=== PATIENT | male | born 1970 | race Caucasian/White ===

== ENCOUNTER 2021-05-21 13:59 | Emergency (ER) | payer BC ==
[2021-05-21] MEDS ORDERED: Sodium Chloride 0.9% 10 ML Syringe FLUSH PRN (14:11)
--- NOTE | 2021-05-21 14:11 | EDM.PDOC ---
ED HPI GENERAL MEDICAL PROBLEM - General Stated Complaint: DOESN'T FEEL WELL Time Seen by Provider: 05/21/21 14:10 Source of Information: Reports: Patient History Limitations: Reports: No Limitations - History of Present Illness INITIAL COMMENTS - FREE TEXT/NARRATIVE: Patient comes emergency department today from home with concerns of not feeling well. This patient yesterday was asymptomatic. 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 He had a very brief episode of diaphoresis. Otherwise he has no other symptoms. During the episode of the diaphoresis he did not have any chest pain shortness of breath or difficulty breathing. No weakness dizziness lightheadedness. He has felt fatigued all day but he typically would not feel as such with [place]. He has had no fever no chills. No abdominal pain no nausea or vomiting. No cough or congestion. No hematuria dysuria urinary frequency. No black or tarry stools. No rash sores or lesions. He is vaccinated for Covid. He has not been around anyone ill. He still feels fatigue but the diaphoresis has resolved. He has a history of high blood pressure. - Related Data Allergies Allergy/AdvReac Type Severity Reaction Status Date / Time No Known Allergies Allergy Verified 05/21/21 14:34 Home Meds: Home Meds Hydrochlorothiazide 25 mg PO DAILY 08/30/16 [History] Lisinopril 10 mg PO DAILY 08/30/16 [History] Sertraline [Zoloft] 100 mg PO DAILY 08/30/16 [History] amLODIPine [Norvasc] 10 mg PO DAILY 08/30/16 [History] Past Medical History HEENT History: Reports: None Cardiovascular History: Reports: High Cholesterol, Hypertension, Other (See Below) Other Cardiovascular History: low hdl Respiratory History: Reports: None Gastrointestinal History: Reports: Other (See Below) Other Gastrointestinal History: fm hx colon ca Psychiatric History: Reports: Anxiety, Depression Endocrine/Metabolic History: Reports: Obesity/BMI 30+ - Past Surgical History HEENT Surgical History: Reports: Tonsillectomy ED ROS GENERAL - Review of Systems Review Of Systems: Comprehensive ROS is negative, except as noted in HPI. ED EXAM, GENERAL - Physical Exam Exam: See Below Exam Limited By: No Limitations General Appearance: Alert, WD/WN, No Apparent Distress Eye Exam: Bilateral Eye: EOMI Ears: Normal External Exam Nose: Normal Inspection Throat/Mouth: Normal Inspection, Normal Lips, Normal Voice Head: Atraumatic, Normocephalic Neck: Normal Inspection, Supple, Non-Tender, Full Range of Motion Respiratory/Chest: No Respiratory Distress, Lungs Clear, Normal Breath Sounds, No Accessory Muscle Use, Chest Non-Tender Cardiovascular: Normal Peripheral Pulses, Regular Rate, Rhythm, No Murmur GI/Abdominal: Normal Bowel Sounds, Soft, Non-Tender (Male) Exam: Deferred Rectal (Males) Exam: Deferred Back Exam: Normal Inspection, Full Range of Motion Extremities: Normal Inspection, Normal Range of Motion, Non-Tender, No Pedal Edema, Normal Capillary Refill Neurological: Alert, Oriented, Normal Cognition, Normal Gait, No Motor/Sensory Deficits Psychiatric: Normal Affect, Normal Mood Skin Exam: Warm, Dry, Intact, Normal Color, No Rash Course - Vital Signs Last Recorded V/S: Last Vital Signs Temp 98.1 F 05/21/21 16:05 Pulse 78 05/21/21 16:05 Resp 14 05/21/21 16:05 BP 128/72 05/21/21 16:05 Pulse Ox 98 05/21/21 16:05 - Orders/Labs/Meds Orders: Active Orders 24 hr Category Date Time Status Peripheral IV Insertion Adult [OM.PC] Stat Oth 05/21/21 14:11 Ordered Labs: Laboratory Tests 05/21/21 05/21/21 05/21/21 Range/Units 14:11 14:12 14:52 WBC 8.2 (4.0-10.0) x10^3/uL RBC 4.86 (4.5-6.0) x10^6/uL Hgb 15.4 (14.0-18.0) g/dL Hct 43.8 (40.0-52.0) % MCV 90.1 (78.0-93.0) fL MCH 31.7 (26.0-32.0) pg MCHC 35.2 (32.0-36.0) g/dL RDW Coeff of Rehan 12.2 (10.0-15.0) % Plt Count 261 (130-400) x10^3/uL Immature Gran % (Auto) 0.20 (0.00-0.43) % Neut % (Auto) 65.9 (50.0-80.0) % Lymph % (Auto) 22.4 L (25.0-50.0) % [place] % (Auto) 7.3 (2.0-11.0) % Eos % (Auto) 3.3 (0.0-4.0) % Baso % (Auto) 0.9 (0.2-1.2) % Neut # (Auto) 5.4 (1.8-7.7) x10^3/uL Lymph # (Auto) 1.8 (1.0-4.8) x10^3/uL [place] # (Auto) 0.6 (0.0-0.8) x10^3/uL Eos # (Auto) 0.3 (0.0-0.5) x10^3/uL Baso # (Auto) 0.1 (0.0-0.2) x10^3/uL Immature Gran # (Auto) 0.02 (0.00-0.07) x10^3/uL Sodium (136-145) mmol/L Potassium (3.5-5.1) mmol/L Chloride (98-107) mmol/L Carbon Dioxide (21-32) mmol/L Anion Gap (5-15) mmol/L BUN (7-18) mg/dL Creatinine (0.70-1.30) mg/dL Est Cr Clr Drug Dosing Estimated GFR (MDRD) Glucose (70-99) mg/dL Lactic Acid (0.4-2.0) mmol/L Calcium (8.5-10.1) mg/dL Corrected Calcium (8.5-10.1) mg/dL Total Bilirubin (0.2-1.0) mg/dL AST (15-37) U/L ALT (16-63) U/L Alkaline Phosphatase (46-116) U/L Creatine Kinase (39-308) U/L Troponin I High Sens (<=76) ng/L C-Reactive Protein (<=0.9) mg/dL Total Protein (6.4-8.2) g/dL Albumin (3.4-5.0) g/dL Globulin Albumin/Globulin Ratio TSH, Ultra Sensitive (0.358-3.74) uIU/mL Urine Color Yellow (YELLOW) Urine Appearance Clear (CLEAR) Urine pH 7.0 (5.0-8.0) Ur Specific [place] 1.015 Urine Protein Negative (NEGATIVE) mg/dL Urine Glucose (UA) Negative (NEGATIVE) mg/dL Urine Ketones Negative (NEGATIVE) mg/dL Urine Occult Blood Negative (NEGATIVE) Urine Nitrite Negative (NEGATIVE) Urine Bilirubin Negative (NEGATIVE) Urine Urobilinogen 0.2 (0.2) EU/dL Ur Leukocyte Esterase Negative (NEGATIVE) SARS CoV-2 RNA Rapid NELA Negative (NEGATIVE) 05/21/21 05/21/21 05/21/21 Range/Units 14:52 14:52 14:52 WBC (4.0-10.0) x10^3/uL RBC (4.5-6.0) x10^6/uL Hgb (14.0-18.0) g/dL Hct (40.0-52.0) % MCV (78.0-93.0) fL MCH (26.0-32.0) pg MCHC (32.0-36.0) g/dL RDW Coeff of Rehan (10.0-15.0) % Plt Count (130-400) x10^3/uL Immature Gran % (Auto) (0.00-0.43) % Neut % (Auto) (50.0-80.0) % Lymph % (Auto) (25.0-50.0) % [place] % (Auto) (2.0-11.0) % Eos % (Auto) (0.0-4.0) % Baso % (Auto) (0.2-1.2) % Neut # (Auto) (1.8-7.7) x10^3/uL Lymph # (Auto) (1.0-4.8) x10^3/uL [place] # (Auto) (0.0-0.8) x10^3/uL Eos # (Auto) (0.0-0.5) x10^3/uL Baso # (Auto) (0.0-0.2) x10^3/uL Immature Gran # (Auto) (0.00-0.07) x10^3/uL Sodium 139 (136-145) mmol/L Potassium 3.7 (3.5-5.1) mmol/L Chloride 102 (98-107) mmol/L Carbon Dioxide 26 (21-32) mmol/L Anion Gap 14.7 (5-15) mmol/L BUN 10 (7-18) mg/dL Creatinine 1.0 (0.70-1.30) mg/dL Est Cr Clr Drug Dosing TNP Estimated GFR (MDRD) > 60 Glucose 89 (70-99) mg/dL Lactic Acid 1.0 (0.4-2.0) mmol/L Calcium 9.1 (8.5-10.1) mg/dL Corrected Calcium 9.3 (8.5-10.1) mg/dL Total Bilirubin 0.4 (0.2-1.0) mg/dL AST 35 (15-37) U/L ALT 78 H (16-63) U/L Alkaline Phosphatase 48 (46-116) U/L Creatine Kinase 167 (39-308) U/L Troponin I High Sens 10 (<=76) ng/L C-Reactive Protein < 0.2 (<=0.9) mg/dL Total Protein 7.4 (6.4-8.2) g/dL Albumin 3.7 (3.4-5.0) g/dL Globulin 3.7 Albumin/Globulin Ratio 1.00 TSH, Ultra Sensitive 1.369 (0.358-3.74) uIU/mL Urine Color (YELLOW) Urine Appearance (CLEAR) Urine pH (5.0-8.0) Ur Specific [place] Urine Protein (NEGATIVE) mg/dL Urine Glucose (UA) (NEGATIVE) mg/dL Urine Ketones (NEGATIVE) mg/dL Urine Occult Blood (NEGATIVE) Urine Nitrite (NEGATIVE) Urine Bilirubin (NEGATIVE) Urine Urobilinogen (0.2) EU/dL Ur Leukocyte Esterase (NEGATIVE) SARS CoV-2 RNA Rapid NELA (NEGATIVE) Meds: Medications Discontinued Medications Generic Name Dose Route Start Last Admin Trade Name Freq PRN Reason Stop Dose Admin Sodium Chloride 10 ml 05/21/21 14:11 Sodium Chloride 0.9% 10 Ml Syringe FLUSH ASDIRECTED PRN Keep Vein Open - Re-Assessments/Exams Free Text/Narrative Re-Assessment/Exam: His EKG on arrival is unremarkable no ischemia ST elevation or depression when reviewed extemporaneously by myself. The patient is in no distress and is in exam is unremarkable and he only complains of fatigue on arrival. His laboratory evaluation is very unremarkable. His troponin is normal. His TSH is normal his urinalysis as well as his CMP and BMP. I am unsure of what is causing his symptoms of fatigue. His CPK is normal as well. I see no signs of infection. He had no chest pain palpitations or other complaints during the episode of diaphoresis. It is possible that he may had a small tachyarrhythmia that caused the diaphoretic situation although I am unsure of what is causing his rather sudden onset of fatigue. He has no malaise myalgias or arthralgias. He is otherwise asymptomatic in the emergency department. I will have him follow-up with his primary care provider on Sunday to see if they will get a Holter monitor in place to ensure that he is not have any tacky dysrhythmias. Anything new or worse he is to recheck sooner. He is comfortable with this plan his questions are answered. Departure - Departure Time of Disposition: 16:18 Disposition: Home, Self-Care 01 Clinical Impression: Fatigue Qualifiers: Fatigue type: unspecified Qualified Code(s): R53.83 - Other fatigue - Discharge Information Referrals: Laura Lomeli DO [Primary Care Provider] - Forms: ED Department Discharge Additional Instructions: Home rest today. Stay out of the heat. Plenty of fluids over the next few days. Return to the ED if new or worsening symptoms. Contact your PCP on sunday for possible holter monitor placement. Sepsis Event Note (ED) - Focused Exam Vital Signs: Vital Signs Temp Pulse Resp BP Pulse Ox 05/21/21 16:05 98.1 F 78 14 128/72 98 05/21/21 14:05 98.2 F 89 18 131/86 96 - My Orders Last 24 Hours: My Active Orders 05/21/21 14:11 Peripheral IV Insertion Adult [OM.PC] Stat - Assessment/Plan Last 24 Hours: My Active Orders 05/21/21 14:11 Peripheral IV Insertion Adult [OM.PC] Stat
--- NOTE | 2021-05-21 14:26 | PCM.EKG ---
#1 Interpretation EKG Date: 05/21/21 Time: 14:11 Rhythm: NSR Rate (Beats/Min): 75 Ashley: Normal P-Wave: Present QRS: Normal ST-T: Normal QT: Normal Comparison: NA - No Prior EKG
[2021-05-21 15:20] LABS: CHLORIDE,CL 102 mmol/L (98-107); SODIUM,NA 139 mmol/L (136-145)
[2021-05-21 15:29] LABS: ANION GAP 14.7 mmol/L (5-15)
[2021-05-21 16:39] VITALS: BP 128/72; PULSE 78
== END 2021-05-21 16:26 | disposition home or self-care (01) ==
LOC: VM.ED 13:59
DX: R53.83 Other fatigue (principal); E78.00 Pure hypercholesterolemia, unspecified; I10 Essential (primary) hypertension; E66.9 Obesity, unspecified; Z68.30 Body mass index [BMI] 30.0-30.9, adult; Z20.822 Contact with and (suspected) exposure to COVID-19
CPT/HCPCS: 36415; 80053; 81003; 82550; 83605; 84443; 84484; 85025; 86140; 93005; 99283-25; 99284; U0002

== ENCOUNTER 2021-10-06 07:19 | Day surgery (SDC) | payer BC ==
[~2021-10-06 07:19] MED LIST: Lactated Ringers 1,000 ML IV SCH
[2021-10-06] MEDS ORDERED: fentaNYL 100 MCG/2 ML SDV ONE (07:47)
[2021-10-06] MEDS ORDERED: Propofol 200 MG/20 ML SDV ONE (07:47)
[2021-10-06 10:11] VITALS: BP 110/68; PULSE 73
== END 2021-10-06 11:10 | disposition home or self-care (01) ==
LOC: VM.SDS 07:19
PROVIDERS: ATTEND Family Medicine
DX: Z12.11 Encounter for screening for malignant neoplasm of colon (principal); D12.0 Benign neoplasm of cecum; D12.4 Benign neoplasm of descending colon; I10 Essential (primary) hypertension; G47.33 Obstructive sleep apnea (adult) (pediatric); E66.9 Obesity, unspecified; F32.A Depression, unspecified; F41.9 Anxiety disorder, unspecified; M62.830 Muscle spasm of back; E78.5 Hyperlipidemia, unspecified; Z80.0 Family history of malignant neoplasm of digestive organs; Z98.890 Other specified postprocedural states; Z79.899 Other long term (current) drug therapy; Z90.49 Acquired absence of other specified parts of digestive tract; Z68.41 Body mass index [BMI] 40.0-44.9, adult
CPT/HCPCS: 00812; 45380; J2704; J3010; J7120

== ENCOUNTER 2022-05-07 11:29 | Emergency (ER) | payer BC ==
[2022-05-07 11:57] VITALS: BP 116/76; PULSE 85
[2022-05-07] MEDS ORDERED: Ketorolac 30 MG/ML SDV IM ONE (12:39)
[2022-05-07] MEDS ORDERED: Take Home: traMADol 50 MG, 4 Tab Pack PO ONE (13:23)
== END 2022-05-07 13:47 | disposition home or self-care (01) ==
LOC: VM.ED 11:29
DX: S46.211A Strain of muscle, fascia and tendon of other parts of biceps, right arm, initial encounter (principal); E78.00 Pure hypercholesterolemia, unspecified; I10 Essential (primary) hypertension; E66.9 Obesity, unspecified; Z68.41 Body mass index [BMI] 40.0-44.9, adult; Z79.82 Long term (current) use of aspirin; Z79.899 Other long term (current) drug therapy; W20.8XXA Other cause of strike by thrown, projected or falling object, initial encounter
CPT/HCPCS: 73060-RT; 96372; 99283; A9270-GY; J1885